=== PATIENT | male | born 1935 | race Hispanic/Latino ===

== ENCOUNTER 2017-03-25 11:15 | Outpatient (CLI) | payer MEDICARE, OTHER ==
--- NOTE | 2017-03-25 12:30 | XRay Report ---
SACRUM AND COCCYX: History: Pain in the coccyx. The bony architecture is intact. The alignment appears normal. No significant soft tissue abnormalities are seen. IMPRESSION: Normal sacrum and coccyx.
== END 2017-03-25 11:16 | disposition home or self-care (01) ==
LOC: XRAY 11:15
PROVIDERS: ATTEND Internal Medicine
DX: M53.3 Sacrococcygeal disorders, not elsewhere classified (principal); M54.5 Low back pain
CPT/HCPCS: 72220